=== PATIENT | female | born 1960 | race Caucasian/White ===

== ENCOUNTER → 2023-12-07 07:15 | Outpatient (REF) | payer BC, SELFPAY | LOC: DHCBC HW 07:15 | PROVIDERS: ATTENDING PHYSICIAN Internal Medicine Cardiovascular Disease | DX: E78.2 Mixed hyperlipidemia (principal); R94.31 Abnormal electrocardiogram [ECG] [EKG] | CPT/HCPCS: 93306 ==

== ENCOUNTER → 2023-12-19 12:11 | Outpatient (REF) | payer BC, SELFPAY | LOC: DHCBC/DCA 12:11 | PROVIDERS: ATTENDING PHYSICIAN Internal Medicine Cardiovascular Disease; FAMILY PHYSICIAN Internal Medicine | DX: E78.2 Mixed hyperlipidemia (principal); R93.1 Abnormal findings on diagnostic imaging of heart and coronary circulation; Z82.49 Family history of ischemic heart disease and other diseases of the circulatory system; R94.31 Abnormal electrocardiogram [ECG] [EKG] | CPT/HCPCS: 78452; 93017; A9500 ==

== ENCOUNTER → 2024-09-27 12:09 | Outpatient (REF) | payer MEDICARE, OTHER, SELFPAY | LOC: WDC 12:09 | PROVIDERS: ATTENDING PHYSICIAN Obstetrics & Gynecology Gynecology; FAMILY PHYSICIAN Internal Medicine | DX: Z12.31 Encounter for screening mammogram for malignant neoplasm of breast (principal) | CPT/HCPCS: 77063; 77067 ==

== ENCOUNTER → 2025-01-22 07:22 | Outpatient (REF) | payer MEDICARE, OTHER, SELFPAY | LOC: RAD 07:22 | PROVIDERS: ATTENDING PHYSICIAN Internal Medicine | DX: M81.0 Age-related osteoporosis without current pathological fracture (principal) | CPT/HCPCS: 77080 ==

== ENCOUNTER 2025-08-22 11:48 | Emergency (ER) | payer MEDICARE, OTHER, SELFPAY ==
[2025-08-22 11:56] VITALS: BP 125/88
[2025-08-22 12:23] LABS: Hematocrit 40.2 % (37.0-47.0); Hemoglobin 12.9 g/dL (12.0-16.0); Mean Corp Hgb Conc. 32.1 g/dL (33.0-37.0); Mean Corpuscular Volume 87.4 fL (81.0-99.0); Nucleated Red Blood Cells % 0 %; Platelet Count 278 10^3/uL (130-400); Red Cell Dist. Width 13.5 % (11.5-14.5)
[2025-08-22 12:43] LABS: ALT (SGPT) 32 U/L (0-35); AST (SGOT) 35 U/L (14-36); Albumin 4.4 g/dl (3.5-5.0); Alkaline Phosphatase 49 U/L (38-126); Blood Urea Nitrogen 11 mg/dl (7-17); Calcium 9.1 mg/dl (8.4-10.2); Carbon Dioxide 31 mmol/L (22-30); Chloride 101 mmol/L (98-107); Glucose 101 mg/dl (70-99); Lipase 252 U/L (23-300); Potassium 3.7 mmol/L (3.5-5.1); Sodium 137 mmol/L (135-145); Total Protein 7.3 g/dl (6.3-8.2); eGFR > 60.00
--- NOTE | 2025-08-22 13:34 | ED.GENMED ---
History of Present Illness
General
Chief Complaint: Abdominal Pain
Time Seen by Provider: 08/22/25 13:19
Nursing documentation reviewed up to this point in time: agreed with
History of Present Illness
History of Present Illness:
64-year-old female presents to the ER for evaluation of sharp right jaw pain and right upper quadrant abdominal pain that occurred all of a sudden at 4:00 this morning. Patient states that she was awakened by the discomfort and felt restless for
perhaps 2 to 3 minutes before pain completely resolved and she was able to get back to sleep. Patient awakened this morning feeling well other than mild headache, similar to what she has experienced in the past. Patient did not take any analgesics
for her discomforts. She states that she does not eat much on a daily basis and had what she would consider to be a normal amount of food today-to jacque snacks. Patient denies chest pain or shortness of breath. No syncope or trauma. Patient
does routinely see cardiology given significant family history for ACS, she has no personal prior history of ACS. She denies any paresthesias to her arms and legs. She denies any visual changes. She denies any dental pain.
Past History
Past History
ED Past Medical History: None
ED Past Surgical History: None
Social History
Tobacco: Non-smoker
Alcohol: None
Drug: None
Living: with family
Review of Systems
Review of Systems
Allergies reviewed?: Yes
Phy Exam
Physical Exam
Physical Exam:
Patient is awake, alert, appears younger than stated age in no acute distress, head is NCAT, PERRL, EOMI mucous membranes moist, conjunctiva pink, heart regular rate and rhythm without murmurs or ectopy, lungs are clear to auscultation without
wheezes rales or rhonchi, no JVD, abdomen is soft and nontender on palpation, no hernia, negative [place], extremities without edema, 2+ DP pulses present symmetric, 2+ radial pulses present symmetric, GCS is 15, no dysdiadochokinesia, no ataxia, no
pronator drift
Course
Orders/Labs/Results
Orders:
Orders
08/22/25 12:11
Complete Blood Count/With Diff Urgent
Comprehensive Metabolic Panel Urgent
Lipase Urgent
08/22/25 13:28
CT Head W/o Iv Contrast Stat
Comment:
Reason For Exam: headache
08/22/25 13:29
Electrocardiogram (*1) Urgent
Reason for Study: Chest Pain
EKG- Treatment ONCE
CR Chest - 2 Views Urgent
Comment:
Reason For Exam: R sided pain
08/22/25 13:44
Add On- LAB Urgent
Tests Added?: troponin
08/22/25 13:58
Troponin I Urgent
Abnormal Lab Results
08/22/25
12:11
MCHC 32.1 L g/dL
(33.0-37.0)
Absolute Monos (auto) 0.7 H 10^3/uL
(0.1-0.6)
Carbon Dioxide 31 H mmol/L
(22-30)
Glucose 101 H mg/dl
(70-99)
08/22/25 12:11
08/22/25 12:11
CBC within normal limits, BMP also within normal limits, kidney function preserved, LFTs normal
Vital Signs
Initial and Last Documented VS:
Initial Vital Signs
Temp Pulse Resp BP Pulse Ox
97.8 F 68 16 125/88 98
08/22/25 11:56 08/22/25 11:56 08/22/25 11:56 08/22/25 11:56 08/22/25 11:56
Last Documented Vital Signs
Temp Pulse Resp BP Pulse Ox
97.8 F 72 12 86/63 97
08/22/25 11:56 08/22/25 16:01 08/22/25 16:01 08/22/25 16:08/22/25 16:01
MDM/Problems Addressed
Differential Diagnosis Includes:
Differential diagnosis to consider but not limited to muscle spasm, electrolyte dyscrasia, intracranial hemorrhage, intracranial mass, biliary colic, along with other etiologies considered
Chronic conditions affecting care:
None
*Radiology
Radiology exam reviewed: preliminary read by ED provider (I independently viewed and interpreted two-view chest x-ray showing normal cardiac silhouette, no pleural effusions, no mediastinal widening) and radiology read reviewed (No acute process
seen on chest x-ray. [facility] wn)
*Pulse Oximetry
SaO2: 98
Oxygen Mode of Delivery: Room air
Patient hypoxic: no
*EKG
Interpreted by ED Provider?: Yes (I independently viewed and interpreted twelve-lead EKG showing sinus bradycardia, rate 58, normal axis, normal intervals, nonspecific T wave flattening in the lateral leads, subtly different compared to prior from
11/17/2025, no evidence for acute STEMI)
*Sp[facility] Miller Interpretation
Rate: bradycardiac (I independently viewed and interpreted rhythm strip showing sinus bradycardia, no ectopy)
*Critical Care Note
Total Time (30-74mins, 75-104mins- exclusive of procedures): Not Applicable
Update Note
Update Note:
Patient is declining any need for analgesia at the current time. I discussed with her very reassuring labs. Will add EKG, chest x-ray and CT of the head. She agrees with plan at current
1700: I reviewed with patient very reassuring CT head. Chest x-ray also within normal limits, troponin negative. I discussed with patient unclear etiology of the symptoms that she experienced during this brief episode this morning. She feels
comfortable with plan for discharge and will follow-up with her primary care physician. She has no questions prior to d/c
ED Attending Note
-
Portions of this chart may have been created with voice recognition software.� Occasional wrong word or��sound alike� substitutions may have occurred due to the inherent limitations of voice recognition software.
Discharge Plan
Departure
Patient Disposition: Home (Routine Discharge)
Date of Disposition: 08/22/25
Time of Disposition: 17:11
Patient with high blood pressure during this ER visit?: No
Discharge Problem:
Abdominal pain, Headache
Instructions: Headache in adults - ED (DC), Abdominal Pain
Prescriptions:
No Action
ibuprofen 600 MG tablet
600 mg PO Q6H PRN (Reason: pain) Qty: 20 0RF
Referrals:
Artur Frank I., DO [Family Provider, Internal Medicine]
Activity Restrictions/Additional Instructions:
Please follow-up with your doctor in 2 days for reevaluation and further care. Return to the ER for any concerns. You may use Tylenol or ibuprofen as needed for any discomforts
Interventions
Interventions:
*Risk Screen - Suicide Last Done: 08/22/25 11:56
*General Assessment Last Done: 08/22/25 13:48
*Neglect/Abuse Screening Last Done: 08/22/25 11:56
*ED- Fall Risk Assessment Last Done: 08/22/25 13:48
*Nursing Disposition Last Done: 08/22/25 17:26
VR-Rqgpkb-Cjfzfqjsdk Assessment Last Done: 08/22/25 13:48
Discharge Date and Time
Discharge Date/Time: 08/22/25 17:28
Print Language: ESTONIAN
[2025-08-22 13:47] VITALS: BMI 20.2
[2025-08-22 14:33] LABS: Troponin I < 0.012 ng/ml
[2025-08-22 16:01] VITALS: BP 86/63
== END 2025-08-22 17:28 | disposition home or self-care (01) ==
LOC: EMR 11:48
PROVIDERS: Student in an Organized Health Care Education/Training Program; EMERGENCY PHYSICIAN Emergency Medicine; FAMILY PHYSICIAN Internal Medicine
DX: R10.11 Right upper quadrant pain (principal); R51.9 Headache, unspecified; R00.1 Bradycardia, unspecified; Z82.49 Family history of ischemic heart disease and other diseases of the circulatory system
CPT/HCPCS: 99284; 70450; 71046; 80053; 83690; 84484; 85025; 93005

== ENCOUNTER → 2025-09-11 14:35 | Outpatient (REF) | payer MEDICARE, OTHER, SELFPAY | LOC: WDC 14:35 | PROVIDERS: ATTENDING PHYSICIAN Obstetrics & Gynecology Gynecology | DX: Z12.31 Encounter for screening mammogram for malignant neoplasm of breast (principal) | CPT/HCPCS: 77063; 77067 ==